=== PATIENT | female | born 1955 | race Hispanic/Latino ===

== ENCOUNTER → 2022-04-08 | Outpatient (CLI) | payer OTHER, MEDICARE | END | disposition home or self-care (01) | LOC: SHCH 10:00 | PROVIDERS: ATTEND Internal Medicine Cardiovascular Disease | DX: R00.2 Palpitations (principal); R07.9 Chest pain, unspecified | CPT/HCPCS: 93306 ==

== ENCOUNTER → 2022-06-03 | Outpatient (CLI) | payer OTHER, MEDICARE | END | disposition home or self-care (01) | LOC: RAH 11:37 | PROVIDERS: ATTEND Internal Medicine Cardiovascular Disease | DX: R07.9 Chest pain, unspecified (principal) | CPT/HCPCS: 71100 ==

== ENCOUNTER → 2022-06-24 | Outpatient (CLI) | payer OTHER, MEDICARE | END | disposition home or self-care (01) | LOC: SHCH 11:00 | PROVIDERS: ATTEND Internal Medicine Cardiovascular Disease | DX: I11.9 Hypertensive heart disease without heart failure (principal); R07.9 Chest pain, unspecified; R00.2 Palpitations; E78.5 Hyperlipidemia, unspecified | CPT/HCPCS: 93306 ==

== ENCOUNTER → 2022-06-27 | Outpatient (CLI) | payer OTHER, MEDICARE ==
[~2022-06-27] MED LIST: REGADENOSON 0.4 MG/5 ML PF SYG IVP ONE
== END | disposition home or self-care (01) ==
LOC: SHCH 09:06
PROVIDERS: ATTEND Internal Medicine Cardiovascular Disease
DX: R07.9 Chest pain, unspecified (principal); R00.2 Palpitations
CPT/HCPCS: 78452; 96374; 93017; J2785; A9500 ×2

== ENCOUNTER 2022-07-03 10:36 | Emergency (ER) | payer OTHER, MEDICARE ==
[~2022-07-03] VITALS: Ht 162.6 cm; Wt 67.6 kg
[2022-07-03] MEDS ORDERED: KETOROLAC 15MG/ML VIAL (15MG/ML) IM ONE (11:30)
[2022-07-03 11:55] VITALS: BP 124/92
== END 2022-07-03 11:55 | disposition home or self-care (01) ==
LOC: EDH 10:36
DX: H92.02 Otalgia, left ear (principal); R10.814 Left lower quadrant abdominal tenderness
CPT/HCPCS: 99283; 96372; J1885

== ENCOUNTER → 2024-11-09 | Outpatient (CLI) | payer OTHER, MEDICAID ==
[~2024-11-09] MED LIST changes: +IOHEXOL-350 75 ML VIAL IV ONE; -REGADENOSON 0.4 MG/5 ML PF SYG IVP ONE
--- NOTE | 2024-11-10 14:51 | HMCIMG ---
CT ABDOMEN/PELVIS W/ intravenous contrast and oral contrast. REASON: Lower abdominal pain, unspecified COMPARISON: None. FINDINGS: Lung bases are clear. There are no focal liver lesions. There are normal-appearing kidneys.. Spleen and pancreas appear unremarkable. The gallbladder appears normal as well. Bowel loops appear unremarkable. Small and large bowels are well-opacified with oral contrast.. This includes normal appearance of the appendix There is no evidence of free fluid or intraperitoneal air. There are no focal fluid collections. Aorta and retroperitoneum appear normal as do pelvic soft tissue structures. The anterior abdominal wall has mesh repair in the lower abdomen.. Osseous structures appear unremarkable. IMPRESSION: 1. No acute process is seen in CT of the abdomen and pelvis with intravenous contrast and oral contrast 2. Status post mesh repair is postsurgical changes in the lower abdominal wall.. CT was performed with one or more following dose reduction techniques: automated exposure control, adjustment of the mA and kv according to patient's size, or use of a iterative reconstruction technique.
== END | disposition home or self-care (01) ==
LOC: RAH 09:33
PROVIDERS: ATTEND Internal Medicine Gastroenterology
DX: R10.30 Lower abdominal pain, unspecified (principal); Z98.890 Other specified postprocedural states
CPT/HCPCS: 74177; Q9967